=== PATIENT | male | born 1995 | race Caucasian/White ===

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

== ENCOUNTER 2017-01-29 19:51 | Emergency (ER) | payer MEDICAID ==
[~2017-01-29] VITALS: Ht 182.9 cm; Wt 87.0 kg
[~2017-01-29 19:51] MED LIST changes: -AMOX500T PO; +CEPH-460 PO; +CHLOTAB5 PO; -HYDR-3533 PO; +ZITH500T PO
[2017-01-29 19:55] VITALS: BP 136/85; PULSE 54; RESP 18; TEMP 98.5; O2SAT 96
[2017-01-29] MEDS ORDERED: ALUMINUM/MAGNESIUM/SIMETH 30 ML CUP PO ONE (20:30)
[2017-01-29] MEDS ORDERED: LIDOCAINE VISCOUS 2% SOLN 15 ML UDC PO ONE (20:30)
--- NOTE | 2017-01-29 20:35 | PD ---
HPI Chief Complaint: Pain: Acute or Chronic Time Seen by Provider: 20:05 Travel History International Travel<30 days: No Contact w/Intl Traveler<30days: No Traveled to known affect area: No History of Present Illness HPI 21-year-old male presents emergency department for evaluation of chest pain. He reports that at approximately noon today after eating lunch he developed epigastric/chest pain that has been intermittent, nonradiating, worse with movement and swallowing. He reports he had some relief with an over-the- counter antacid. He reports he attempted to eat dinner this evening and with each swallow he felt sharp pain prompting his visit and night. He reports history of GERD. He reports his symptoms are worse with twisting and bending and swallowing. He denies shortness of breath, nausea/vomiting, diaphoresis, weakness, foreign body sensation in the throat, or hematemesis. PFSH Past Medical History Medical History: Denies Significant Hx Diminished Hearing: No Immunizations Current: Yes Influenza Vaccination: No Past Surgical History Surgical History: No Previous Surgery Oral Surgery: Yes Social History Alcohol Use: Yes (OCCAS) Tobacco Use: No Substance Use: No Allergies-Medications (Allergen,Severity, Reaction): Coded Allergies: No Known Allergies (Verified , 01/29/17) Reported Meds & Prescriptions Reported Meds & Active Scripts Active Pepcid (Famotidine) 20 Mg Tab 20 Mg PO BID Review of Systems Except as stated in HPI: all other systems reviewed are Neg Physical Exam Narrative GENERAL: Well-nourished, well-developed patient. No acute distress. SKIN: Focused skin assessment warm/dry. HEAD: Normocephalic. EYES: No scleral icterus. No injection or drainage. NECK: Supple, trachea midline. No JVD or lymphadenopathy. CARDIOVASCULAR: Regular rate and rhythm without murmurs, gallops, or rubs. RESPIRATORY: Breath sounds equal bilaterally. No accessory muscle use. GASTROINTESTINAL: Abdomen soft, non-tender, nondistended. MUSCULOSKELETAL: No cyanosis, or edema. BACK: Nontender without obvious deformity. No CVA tenderness. Data Data Last Documented VS Vital Signs Date Time Temp Pulse Resp B/P Pulse Ox O2 Delivery O2 Flow Rate FiO2 01/29/17 19:55 98.5 54 18 136/85 96 Orders Chest, Ap & Lat (01/29/17 ) Electrocardiogram (01/29/17 ) Al-Mag Hy-Si 40-40-4 Mg/Ml Liq (Mag-Al P (01/29/17 20:30) Lidocaine 2% Viscous (Xylocaine 2% Visco (01/29/17 20:30) MDM Medical Decision Making Medical Screen Exam Complete: Yes Emergency Medical Condition: Yes Differential Diagnosis Esophagitis, GERD, ACSI Narrative Course 21-year-old male presents emergency department for evaluation of chest pain that 's worse with movement and swallowing since noon today. Patient reports he has history of GERD. He reports some symptom relief earlier after taking an over- the-counter antacid. He attempted to eat dinner tonight and with each swallow he felt the pain prompting his visit tonight. Currently emergency department he has no pain. He is well-appearing in no distress. His exam is benign. EKG , chest x-ray, GI cocktail ordered. EKG: Sinus bradycardia no ST or T-wave changes Chest x-ray: No acute disease 2119 patient reassessed at this time. All diagnostic findings discussed with patient and family. Patient reports symptom relief. He has no pain this time. He is requesting discharge. Warning precautions discussed with patient and family. They agree to return if he should develop chest pain, shortness of breath or any new symptoms. Diagnosis Primary Impression: GERD (gastroesophageal reflux disease) Qualified Code: K21.9 - Gastroesophageal reflux disease, esophagitis presence not specified Referrals: Primary Care Physician Additional Instructions: Take the medication as prescribed. Avoid caffeine, chocolate, spicy, fatty or oily foods. Follow-up with her primary doctor for reevaluation. Return to the emergency department if he develops new or worsening symptoms. Scripts Famotidine (Pepcid)20 Mg Tab20 Mg PO BID #20 TAB Ref 0 Prov:Ama Solis 01/29/17 Disposition: 01 DISCHARGE HOME Condition: Stable Ama Solis Jan 29, 2017 20:35
--- NOTE | 2017-01-29 21:20 | RADHPO ---
EXAM DATE/TIME: 01/29/2017 20:29 [facility] COMPARISON: No previous studies available for comparison. INDICATIONS : Chest pain. MEDICAL HISTORY : None. SURGICAL HISTORY : None. ENCOUNTER: Initial ACUITY: 1 day PAIN SCORE: 3/10 LOCATION: Bilateral chest FINDINGS: AP and lateral views of the chest demonstrate the lungs to be symmetrically aerated without evidence of mass, infiltrate or effusion. The cardiomediastinal contours are unremarkable. Osseous structure s are intact. CONCLUSION: Normal examination for a patient of this age. José Miguel Hall MD on January 29, 2017 at 21:18 Board Certified Radiologist. This report was verified electronically.
[2017-01-29] MEDS ORDERED: FAMO1TAB37 PO (21:33)
--- NOTE | 2017-01-31 10:01 | EKG ---
Date Performed: 01/29/2017 Time Performed: 20:21:04 PTAGE: 21 years EKG: Sinus bradycardia Normal ECG except for rate NO PREVIOUS TRACING DOCTOR: Gil Hays Interpretating Date/Time 01/31/2017 09:48:53
== END 2017-01-29 21:51 | disposition home or self-care (01) ==
LOC: PHEFT 19:51
DX: K21.9 Gastro-esophageal reflux disease without esophagitis (principal)
CPT/HCPCS: 71020; 93005; 99284